=== PATIENT | female | born 1980 | race Caucasian/White ===

== ENCOUNTER 2025-01-03 10:03 | Outpatient (CLI) | payer OTHER, SELFPAY ==
--- NOTE | 2025-01-03 12:03 | P.ANES_ITS ---
Anesthesia Charges Start Date/Time Anesthesia Start Date: 01/03/25 Anesthesia Start Time: 11:51 Stop Date/Time Anesthesia Stop Date: 01/03/25 Anesthesia Stop Time: 12:06 Coding CPT Codes CPT Codes: ANES UPR GI NDSC PX NOS - 62025 ([id number]) P2 - PATIENT W/MILD SYST DISEASE, QK - DATA VISUALIZATION DEVELOPER 2-4 CNCRNT ANES PROC, QX - CRYSTALIZER TENDER SVC W/ MD MED DIRECTION
--- NOTE | 2025-01-03 12:03 | W.ANESCHARGE ---
Anesthesia Charges Start Date/Time Anesthesia Start Date: 01/03/25 Anesthesia Start Time: 11:51 Stop Date/Time Anesthesia Stop Date: 01/03/25 Anesthesia Stop Time: 12:06 Coding CPT Codes CPT Codes: ANES UPR GI NDSC PX NOS - 55784 ([id number]) P2 - PATIENT W/MILD SYST DISEASE, QK - PRE OWNED SALES MANAGER 2-4 CNCRNT ANES PROC, QX - TICK ERADICATOR SVC W/ MD MED DIRECTION
--- NOTE | 2025-01-03 12:08 | P.ANES_ITS ---
Anesthesia Charges Start Date/Time Anesthesia Start Date: 01/03/25 Anesthesia Start Time: 11:51 Stop Date/Time Anesthesia Stop Date: 01/03/25 Anesthesia Stop Time: 12:06 Coding CPT Codes CPT Codes: ANES UPR GI NDSC PX NOS - 10950 ([id number]) P2 - PATIENT W/MILD SYST DISEASE, QX - LAUNDRY ROUTE DRIVER SVC W/ MD MED DIRECTION, QK - SURGERY ATTENDANT 2-4 CNCRNT ANES PROC
--- NOTE | 2025-01-03 12:08 | W.ANESCHARGE ---
Anesthesia Charges Start Date/Time Anesthesia Start Date: 01/03/25 Anesthesia Start Time: 11:51 Stop Date/Time Anesthesia Stop Date: 01/03/25 Anesthesia Stop Time: 12:06 Coding CPT Codes CPT Codes: ANES UPR GI NDSC PX NOS - 78726 ([id number]) P2 - PATIENT W/MILD SYST DISEASE, QX - SCRUBBING MACHINE OPERATOR SVC W/ MD MED DIRECTION, QK - SOLAR POOL HEATING INSTALLER 2-4 CNCRNT ANES PROC
== END 2025-01-03 10:04 | disposition home or self-care (01) ==
PROVIDERS: PCP Family Medicine; Visit Provider Internal Medicine Gastroenterology
DX: K92.1 Melena (principal); R10.13 Epigastric pain
CPT/HCPCS: 00731; 43239; 88305; 88312; J2704; J3490